=== PATIENT | female | born 1980 | race African-American/Black ===

== ENCOUNTER 2017-02-05 21:21 | Emergency (ER) | payer OTHER ==
[2017-02-05 21:27] VITALS: BMI 37.2
[2017-02-06] MEDS ORDERED: SODIUM CHLORIDE 1,000 ML IV STA (01:17)
[2017-02-06] MEDS ORDERED: ONDANSETRON 4 MG/2 ML VIAL IVPUSH STA (01:18)
--- NOTE | 2017-02-06 01:19 | PDOC ---
History of Present Illness - General History Source: Patient Exam Limitations: No Limitations - History of Present Illness Initial Comments: 02/06/17 01:21 The patient is a 36 year old female with significant past medical history of asthma who presents to the ED with 2 days of diffuse abdominal pain. Patient reports associated nausea, several episodes of nonbloody vomiting and constipation. States she has been unable to tolerate foods or liquids for the past 2 days. She also has complaints of a subjective fever and chills. The patient denies diaphoresis, cough, SOB, chest pain, and palpitations. The patient denies dysuria, hematuria, urgency, and frequency. Allergies: acetaminophen, sulfamethoxazole, trimethoprim Social History: No alcohol, tobacco, or drug use reported. Past Surgical History: None reported PCP: Dr. Epi Samson <Savita Barry - Last Filed: 02/06/17 01:21> - General History Source: Patient <Srikanth Chavez - Last Filed: 02/06/17 19:37> - General Chief Complaint: Pain Stated Complaint: ABD PAIN Time Seen by Provider: 02/06/17 00:58 Past History <Savita Barry - Last Filed: 02/06/17 01:21> - Past Medical History Asthma: Yes Diabetes: No HTN: No - Psycho/Social/Smoking Cessation Hx Anxiety: No Suicidal Ideation: No Smoking Status: No Smoking History: Never smoked Have you smoked in the past 12 months: No Number of Cigarettes Smoked Daily: 0 Hx Alcohol Use: No Drug/Substance Use Hx: No Substance Use Type: None Hx Substance Use Treatment: No <Srikanth Chavez - Last Filed: 02/06/17 19:37> - Past Medical History Allergies/Adverse Reactions: Allergies Allergy/AdvReac Type Severity Reaction Status Date / Time acetaminophen [From Tylenol] Allergy Intermediate facial Verified 02/05/17 21:29 swelling sulfamethoxazole Allergy Mild headache Verified 02/05/17 21:29 [From Bactrim] trimethoprim [From Bactrim] Allergy Mild headache Verified 02/05/17 21:29 pineapple [Pineapple] Allergy Itching Verified 02/05/17 21:29 tomato [Tomato] Allergy Swelling Verified 02/05/17 21:29 pineapple Allergy Severe Itching Uncoded 02/05/17 21:29 Home Medications: Ambulatory Orders Albuterol Sulfate [Proair Hfa -] 1 - 2 inh PO ASDIR 09/15/14 Montelukast Na [Singulair -] 10 mg PO HS 09/15/14 Salmeterol/Fluticasone [Advair 250Mcg/50Mcg] 1 inh PO BID 09/15/14 Metoclopramide HCl [Reglan] 5 mg PO TID #0 tablet 09/19/14 Omeprazole [Prilosec] 40 mg PO DAILY #0 capsule. 09/19/14 Psyllium Husk [Metamucil] 1 dose PO BID #1 bottle 02/06/17 Review of Systems - Review of Systems Able to Perform ROS?: Yes Comments:: 02/06/17 01:21 CONSTITUTIONAL: +subjective fever, chills, decreased PO intake Absent: no fatigue EYES: Absent: visual changes ENT: Absent: ear pain, no sore throat CARDIOVASCULAR: Absent: chest pain, no palpitations RESPIRATORY: Absent: cough, no SOB GI: +abdominal pain, nausea, vomiting, constipation Absent: no diarrhea GENITOURINARY: Absent: dysuria, no frequency, no hematuria MUSCULOSKELETAL: Absent: back pain, no arthralgia, no myalgia SKIN: Absent: rash NEURO: Absent: headache <Savita Barry - Last Filed: 02/06/17 01:21> *Physical Exam - Vital Signs Last Vital Signs Temp Pulse Resp BP Pulse Ox 99.0 F 127 H 20 129/83 99 02/05/17 21:23 02/05/17 21:23 02/05/17 21:23 02/05/17 21:23 02/05/17 21:23 - Physical Exam Comments: 02/06/17 01:21 GENERAL: Well-appearing, well-nourished. No apparent distress. HEENT: Normocephalic, atraumatic. PERRL, EOM intact. CARDIOVASCULAR: Tachycardia. Normal S1, S2. Regular rhythm. PULMONARY: Clear to auscultation bilaterally. ABDOMEN: Soft, non-distended, diffuse abdominal tenderness. No rebound or guarding. EXTREMITIES: Normal ROM in all four extremities. No gross deformities. SKIN: Warm, dry. No rash NEUROLOGICAL: No focal neurological deficits. <Savita Barry - Last Filed: 02/06/17 01:21> - Vital Signs Last Vital Signs Temp Pulse Resp BP Pulse Ox 99.0 F 127 H 20 129/83 99 02/05/17 21:23 02/05/17 21:23 02/05/17 21:23 02/05/17 21:23 02/05/17 21:23 <Srikanth Chavez - Last Filed: 02/06/17 19:37> ED Treatment Course - LABORATORY CBC & Chemistry Diagram: 02/06/17 08:00 02/06/17 08:00 <Srikanth Chavez - Last Filed: 02/06/17 19:37> Medical Decision Making - Medical Decision Making 02/06/17 19:35 Dr. Chavez: The scribe's documentation has been prepared under my direction and personally reviewed by me in its entirery. I confirm that the note above accurately reflects all work, treatment, procedures, and medical decision making performed by me. Pt c/o abdominal pain and constipation. Pt given enema and PO Lactulose with good results. Feels better. Pt was discharge <Srikanth Chavez - Last Filed: 02/06/17 19:37> *DC/Admit/Observation/Transfer - Attestations Scribe Attestion: 02/06/17 01:22 Documentation prepared by Savita Barry, acting as medical records specialist for Srikanth Chavez MD <Savita Barry - Last Filed: 02/06/17 01:21> - Discharge Dispostion Admit: No <Srikanth Chavez - Last Filed: 02/06/17 19:37> Diagnosis at time of Disposition: Constipation Qualifiers: Constipation type: other constipation type Qualified Code(s): K59.09 - Other constipation Abdominal pain Qualifiers: Abdominal location: generalized Qualified Code(s): R10.84 - Generalized abdominal pain - Discharge Dispostion Disposition: HOME Condition at time of disposition: Improved - Prescriptions Prescriptions: Psyllium Husk [Metamucil] 1 dose PO BID #1 bottle - Referrals Referrals: Epi Samson MD [Primary Care Provider] - - Patient Instructions Printed Discharge Instructions: DI for Constipation Additional Instructions: Return to the emergency department immediately with ANY new, persistent or worsening symptoms including worsening abdominal pain, fevers, chills, inability to tolerate oral intake or any other concerns. Please increase your water intake, increasing physical activity and increase her fiber intake Take metamucil as prescirbed for constipation You MUST call and follow up with your doctor tomorrow for further evaluation of your symptoms. Your emergency department visit is not complete without a followup with your doctor for reevaluation. Results were discussed with you. Please make sure your doctor reviews the results of your emergency evaluation. Print Language: DUTCH
[2017-02-06] MEDS ORDERED: ONDANSETRON 4 MG/2 ML VIAL ONE (03:58)
[2017-02-06 04:18] LABS: URINE APPEARANCE SLCLOUDY; URINE BILIRUBIN NEGATIVE (NEGATIVE); URINE BLOOD NEGATIVE (NEGATIVE); URINE COLOR YELLOW; URINE GLUCOSE (UA) NEGATIVE (NEGATIVE); URINE KETONE NEGATIVE (NEGATIVE); URINE NITRITE NEGATIVE (NEGATIVE); URINE PROTEIN NEGATIVE (NEGATIVE); URINE UROBILINOGEN NEGATIVE E.U./dl (0.2-1.0)
[2017-02-06 04:19] LABS: URINE LEUK ESTERASE TRACE (NEGATIVE)
[2017-02-06 04:21] LABS: URINE BACTERIA FEW /hpf (NONE SEEN); URINE MUCUS RARE; URINE RBC 8 /hpf (0-3); URINE WBC 3 /hpf (3-5)
[2017-02-06] MEDS ORDERED: LACTULOSE 20 GM/30 ML UDC (FOR ORAL USE ONLY) PO ONE (05:06)
[2017-02-06] MEDS ORDERED: SODIUM PHOSPHATE/NA BIPHOS 133 ML ENEMA PR ONE (05:06)
[2017-02-06] MEDS ORDERED: LACTULOSE 20 GM/30 ML UDC (FOR ORAL USE ONLY) ONE (05:15)
--- NOTE | 2017-02-06 07:11 | PDOC ---
*Physical Exam - Vital Signs Last Vital Signs Temp Pulse Resp BP Pulse Ox 99.0 F 127 H 20 129/83 99 02/05/17 21:23 02/05/17 21:23 02/05/17 21:23 02/05/17 21:23 02/05/17 21:23 ED Treatment Course - LABORATORY CBC & Chemistry Diagram: 02/06/17 08:00 02/06/17 08:00 - ADDITIONAL ORDERS Additional order review: Laboratory Results 02/06/17 04:05 Serum , Qual Negative Urine Color Yellow Urine Appearance Slcloudy Urine pH 6.0 D Ur Specific Young 1.020 Urine Protein Negative Urine Glucose (UA) Negative Urine Ketones Negative Urine Blood Negative Urine Nitrite Negative Urine Bilirubin Negative Urine Urobilinogen Negative Ur Leukocyte Esterase Trace H Urine RBC 8 Urine WBC 3 Ur Epithelial Cells Moderate Urine Bacteria Few Urine Mucus Rare - Medications Given in the ED: ED Medications Discontinued Medications Generic Name Dose Route Start Last Admin Trade Name Freq PRN Reason Stop Dose Admin Sodium Chloride 1,000 mls @ 1,000 mls/hr 02/06/17 01:17 02/06/17 03:55 Normal Saline - IV 02/06/17 02:16 1,000 mls/hr ASDIR STA Administration Lactulose 40 gm 02/06/17 05:06 02/06/17 05:35 Cephulac (Oral Use) PO 02/06/17 05:07 40 gm ONCE ONE Administration Ondansetron HCl 4 mg 02/06/17 01:18 02/06/17 03:56 Zofran Injection IVPUSH 02/06/17 01:19 4 mg ONCE STA Administration Sodium Phosphate 133 ml 02/06/17 05:06 02/06/17 05:35 Fleet Adult Rectal Enema - MA 02/06/17 05:07 133 ml ONCE ONE Administration Medical Decision Making - Medical Decision Making 02/06/17 07:10 02/06/17 07:10 pt signed out to me from Dr. Walker 36y F hx of asthma presents with abdominal pain suspected due to constipation last bm was 4 days ago pt has a UA that is not suggestive of a UA pt recieved lactulose and an enema pts vitals noted for tachycardia to 127 02/06/17 08:16 pt feeling improved and had a fairly large bm, still feeling some crampy abd pain awaiting lab work will reasses HR improved to 92 after 1L of NS 02/06/17 09:50 pt feelin gimproved however pt has mild rlq tenderness as pt has a small leukocytosis and was tachy to 127, will obtain ct to r/o appendicits 02/06/17 11:[address] abdomen is negative for appendicitis. there is some nonspecific fluid in her abodmen, with suggestion of possible ruptured cyst will d/c the pt wit hpmd fu return precautions were discussed I discussed the physical exam findings, ancillary test results and final diagnoses with the patient. I answered all of the patient's questions. The patient was satisfied with the care received and felt comfortable with the discharge plan and treatment plan. The patient will call their primary care physician within 24 hours to arrange follow-up and will return to the Emergency Department with any new, persistent or worsening symptoms. *DC/Admit/Observation/Transfer Diagnosis at time of Disposition: Constipation Qualifiers: Constipation type: other constipation type Qualified Code(s): K59.09 - Other constipation Abdominal pain Qualifiers: Abdominal location: generalized Qualified Code(s): R10.84 - Generalized abdominal pain - Discharge Dispostion Disposition: HOME Condition at time of disposition: Improved Admit: No - Prescriptions Prescriptions: Psyllium Husk [Metamucil] 1 dose PO BID #1 bottle - Referrals Referrals: Epi Samson MD [Primary Care Provider] - - Patient Instructions Printed Discharge Instructions: DI for Constipation Additional Instructions: Return to the emergency department immediately with ANY new, persistent or worsening symptoms including worsening abdominal pain, fevers, chills, inability to tolerate oral intake or any other concerns. Please increase your water intake, increasing physical activity and increase her fiber intake Take metamucil as prescirbed for constipation You MUST call and follow up with your doctor tomorrow for further evaluation of your symptoms. Your emergency department visit is not complete without a followup with your doctor for reevaluation. Results were discussed with you. Please make sure your doctor reviews the results of your emergency evaluation. Print Language: MALAY - Post Discharge Activity
[2017-02-06 08:48] LABS: BASOPHIL 0.5 % (0-2.0); EOSINOPHIL 0.6 % (0-4.5); MCH 27.5 pg (25.7-33.7); MCHC 32.9 g/dl (32.0-36.0); MEAN CELL VOLUME 83.7 fl (80-96); MEAN PLT VOLUME 7.8 fl (7.5-11.1); NEUTROPHILS 78.2 % (42.8-82.8); PLATELET COUNT 266 K/MM3 (134-434); RDW 15.1 % (11.6-15.6); WHITE BLOOD COUNT 12.4 K/mm3 (4.0-10.0)
[2017-02-06 09:12] LABS: ALBUMIN 2.9 g/dl (3.4-5.0); ALK PHOS 85 U/L (45-117); ANION GAP 8 (8-16); BILIRUBIN,TOTAL 0.3 mg/dL (0.2-1.0); CALCIUM 8.3 mg/dL (8.5-10.1); CO2 26 mmol/L (21-32); COCKROFT - GAULT 143.3695; CREATININE 0.8 mg/dL (0.55-1.02); GLUCOSE,RANDOM 120 mg/dL (74-106); MAGNESIUM 2.1 mg/dL (1.8-2.4); SGOT/AST 10 U/L (15-37); SGPT/ALT 16 U/L (12-78); TOT PROT 6.8 g/dl (6.4-8.2)
[2017-02-06 12:08] VITALS: BP 125/70; PULSE 89; TEMP 98.6
== END 2017-02-06 12:16 | disposition home or self-care (01) ==
LOC: JER 21:21
PROC: 3E033GC Introduction of Other Therapeutic Substance into Peripheral Vein, Percutaneous Approach (ICD-10-PCS; principal; 2017-02-05)
PROC: 3E0337Z Introduction of Electrolytic and Water Balance Substance into Peripheral Vein, Percutaneous Approach (ICD-10-PCS; 2017-02-05)
DX: K59.09 Other constipation (principal); R10.84 Generalized abdominal pain; J45.909 Unspecified asthma, uncomplicated
CPT/HCPCS: 36415; 74020-TC; 74177-TC; 80053; 81003; 81015; 83690; 83735; 84703; 85025; 99282-25

== ENCOUNTER 2017-05-12 08:47 | Emergency (ER) | payer OTHER ==
[2017-05-12 08:53] VITALS: BP 138/77; PULSE 83; TEMP 98.3; BMI 36.1
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
== END 2017-05-12 10:29 | disposition home or self-care (01) ==
LOC: JERFT 08:47
DX: T21.11XA Burn of first degree of chest wall, initial encounter (principal); T23.161A Burn of first degree of back of right hand, initial encounter; T23.171A Burn of first degree of right wrist, initial encounter; X11.8XXA Contact with other hot tap-water, initial encounter; Y93.89 Activity, other specified; Y92.233 Cafeteria of hospital as the place of occurrence of the external cause; Y99.0 Civilian activity done for income or pay
CPT/HCPCS: 99281-25